=== PATIENT | male | born 1970 | race Caucasian/White ===

== ENCOUNTER → 2023-11-02 08:59 | Outpatient (REF) | payer BC, SELFPAY | LOC: RCS 08:59 | PROVIDERS: ATTENDING PHYSICIAN Internal Medicine Cardiovascular Disease; FAMILY PHYSICIAN Family Medicine | DX: I48.0 Paroxysmal atrial fibrillation (principal) | CPT/HCPCS: 93306; Q9950 ==

== ENCOUNTER 2025-01-16 07:10 | Day surgery (SDC) | payer BC, SELFPAY | END 2025-01-16 09:40 | disposition home or self-care (01) | LOC: CATH 07:10 | PROVIDERS: ATTENDING PHYSICIAN Internal Medicine Cardiovascular Disease; FAMILY PHYSICIAN Family Medicine; OTHER PHYSICIAN Internal Medicine Cardiovascular Disease | DX: I48.91 Unspecified atrial fibrillation (principal); I08.3 Combined rheumatic disorders of mitral, aortic and tricuspid valves; Q21.12 Patent foramen ovale; I10 Essential (primary) hypertension; E11.9 Type 2 diabetes mellitus without complications; G47.33 Obstructive sleep apnea (adult) (pediatric); Z72.0 Tobacco use; Z79.01 Long term (current) use of anticoagulants; Z79.4 Long term (current) use of insulin; Z79.85 Long-term (current) use of injectable non-insulin antidiabetic drugs | CPT/HCPCS: 93312; 93320; 93325; 92960 ==

== ENCOUNTER 2025-01-28 10:15 | Day surgery (SDC) | payer BC, SELFPAY ==
[2025-01-28] VITALS (15 sets, daily range): BP systolic 96–137; BP diastolic 67–120; BMI 48.0
--- NOTE | 2025-01-28 09:56 | ITS.CL.CATH ---
Die Hardener - Catheterization
Cardiac Catheterization
Procedure Report:
LEFT AND RIGHT HEART CATHETERIZATION
Date of Procedure: January 28, 2025
Referring:Baldemar Bay MD
PROCEDURES:
1. Left heart catheterization, coronary angiogram.
2. Moderate sedation.
3. Right heart catheterization
INDICATION: Concern for symptomatic severe aortic stenosis. Most recent echocardiogram suggestive of moderate to severe aortic stenosis.
ACCESS: Right radial artery, 6Fr. sheath, under US guidance.
HEMODYNAMICS : (mmHg)
RA (m) : 18
RV (s/d,m) : 33/15, 18
PA (s/d, m) : 34/24, 28
PCWP (m) : 28
PA saturation: 68.6% on 2L oxygen via NC
AO saturation: 94.3% on 2L oxygen via NC
Cardiac Output : 6.9 L/min by Reddy calculation
Cardiac Index : 2.38 L/min/m-2 by Reddy calculation
Systemic vascular resistance: 996 dsc^(-5)
Pulmonary vascular resistance: 0.29 alcazar unit
AO (s/d) : 126/93
LVEDP : 29
No significant gradient across the aortic valve to suggest aortic stenosis.
CORONARY FINDINGS
Dominance: Right
Left Main Trunk (LMT): Large caliber vessel that gives rise to the LAD and LCx branches and is free of angiographic disease.
Left Anterior Descending Artery (LAD): Large caliber vessel that gives off 2 major diagonal branches as it courses along the anterior inter-ventricular groove before wrapping around the cardiac apex. The LAD and its branches are free of
angiographic disease.
Left Circumflex Artery (LCx): Large caliber vessel that gives off 2 major obtuse marginal (OM) branches as it courses along the atrio-ventricular (AV) groove. The LCx and its branches are free of angiographic disease.
Right Coronary Artery (RCA): Large caliber dominant vessel that gives rise to the posterior descending artery (RPDA) and postero-lateral ventricular (RPLV) branches distally. The RCA and its branches are free of angiographic disease.
SEDATION: 47 minutes of procedural sedation was utilized. IV Midazolam and IV Fentanyl were administered. An independent medical practice assistant was present to assist with and help manage the patient's level of consciousness and physiologic status.
RADIATION SUMMARY: Fluoro Time (min): 4.9, Dose (mGy): 444.23, DAP (Gy.cm2) : 35.3
Closure Device: There were no immediate intra-procedural complications. The sheath was pulled in the labor law professor and a vascular-band applied to the right wrist for radial artery hemostasis using the patent hemostasis technique.
CONCLUSIONS
1. No obstructive CAD.
2. significantly elevated left and right-sided filling pressures with normal cardiac output.
RECOMMENDATIONS
1. Wean radial band per protocol. Monitor right hand perfusion and for bleeding from the radial site following removal of the vascular-band following trans-radial access.
2. Continue aggressive medical therapy and risk factor modification for secondary CAD prevention. Aggressive diuresis. Consider addition of SGLT-2i as outpatient.
3. Follow-up with Dr. Baldemar Bay
Copy to: Baldemar Bay MD (mentally impaired teacher)
Guerline Jackson MD, [facility], [facility]
[2025-01-28 10:59] LABS: Glucose - Point of Care 171 mg/dl (70-99)
[2025-01-28] MEDS: NSS 523 ML IV (11:01)
[2025-01-28] MEDS: ASPIRIN 325 MG PO (11:01)
[2025-01-28 11:07] LABS: Hematocrit 46.9 % (39.0-52.0); Hemoglobin 16.4 g/dL (13.0-18.0); Mean Corpuscular Hgb 30.6 pg (27.0-31.0); Mean Corpuscular Volume 87.5 fL (80.0-94.0); Mean Platelet Volume 11.1 fL (7.4-10.4); Platelet Count 213 10^3/uL (130-400); Red Blood Cell Count 5.36 10^6/uL (4.70-6.10); Red Cell Dist. Width 12.6 % (11.5-14.5); White Blood Cell Count 6.3 10^3/uL (4.8-10.8)
[2025-01-28 11:25] LABS: Blood Urea Nitrogen 14 mg/dl (9-20); Calcium 9.5 mg/dl (8.4-10.2); Carbon Dioxide 24 mmol/L (22-30); Chloride 111 mmol/L (98-107); Estimated Creatinine Clearance > 125 ml/min; Glucose 186 mg/dl (70-99); Potassium 4.5 mmol/L (3.5-5.1); Sodium 141 mmol/L (135-145); eGFR > 60.00
[2025-01-28 14:11] LABS: Glucose - Point of Care 145 mg/dl (70-99)
== END 2025-01-28 16:15 | disposition home or self-care (01) ==
LOC: CATH 10:15
PROVIDERS: ATTENDING PHYSICIAN Internal Medicine Interventional Cardiology; OTHER PHYSICIAN Internal Medicine Cardiovascular Disease
DX: I48.91 Unspecified atrial fibrillation (principal); Q21.12 Patent foramen ovale; I10 Essential (primary) hypertension; E11.9 Type 2 diabetes mellitus without complications; R93.1 Abnormal findings on diagnostic imaging of heart and coronary circulation; Z13.6 Encounter for screening for cardiovascular disorders
CPT/HCPCS: 99152; 99153; 80048; 82962; 85027; 93460; C1894; Q9967

== ENCOUNTER → 2025-02-21 07:35 | Outpatient (REF) | payer BC, SELFPAY ==
[2025-02-21 08:59] LABS: ALT (SGPT) 16 U/L (0-50); AST (SGOT) 15 U/L (17-59); Albumin 4.3 g/dl (3.5-5.0); Alkaline Phosphatase 73 U/L (38-126); Direct Bilirubin 0.2 mg/dl (0.0-0.4); Total Bilirubin 1.3 mg/dl (0.2-1.3); Total Protein 6.4 g/dl (6.3-8.2)
[2025-02-21 09:25] LABS: TSH 5.33 uIU/ml (0.47-4.68)
== END ==
LOC: RAD 07:35
PROVIDERS: ATTENDING PHYSICIAN Nurse Practitioner
DX: I48.91 Unspecified atrial fibrillation (principal)
CPT/HCPCS: 36415; 71046; 80076; 84443

== ENCOUNTER 2025-03-06 09:59 | Day surgery (SDC) | payer BC, SELFPAY ==
[2025-03-06 10:55] LABS: Glucose - Point of Care 224 mg/dl (70-99)
--- NOTE | 2025-03-06 11:46 | ITS.CL.CARDI ---
Handicapped Teacher - Cardioversion
Cardioversion
Procedure Report:
Cardioversion report
Date: March 06, 2025
History: Longstanding persistent atrial fibrillation by history status post prior PVI who is undergoing amiodarone loading prior to cardioversion
Procedure report:
After informed consent and patient safety timeout the patient was sedated by the anesthesiology service. Once adequate sedation a 300 J synchronized biphasic shock failed to restore sinus rhythm after 1 beat there was early return of atrial
fibrillation. A second 360 J synchronized biphasic shock also failed to restore durable sinus rhythm and the patient will continue his outpatient amiodarone load and remain in rate controlled atrial fibrillation. He already has an ablation date
scheduled for which he understands and he understands directions for both uninterrupted oral anticoagulation and amiodarone loading as described.
== END 2025-03-06 12:01 | disposition home or self-care (01) ==
LOC: CATH 09:59
PROVIDERS: ATTENDING PHYSICIAN Internal Medicine Cardiovascular Disease; FAMILY PHYSICIAN Family Medicine
DX: I48.11 Longstanding persistent atrial fibrillation (principal); I08.3 Combined rheumatic disorders of mitral, aortic and tricuspid valves; Q21.12 Patent foramen ovale; I10 Essential (primary) hypertension; E11.9 Type 2 diabetes mellitus without complications; G47.33 Obstructive sleep apnea (adult) (pediatric); E66.09 Other obesity due to excess calories; Z68.42 Body mass index [BMI] 45.0-49.9, adult; Z79.01 Long term (current) use of anticoagulants; Z79.4 Long term (current) use of insulin; Z79.85 Long-term (current) use of injectable non-insulin antidiabetic drugs
CPT/HCPCS: 82962; 92960; 93005

== ENCOUNTER 2025-04-11 11:13 | Emergency (ER) | payer BC, SELFPAY ==
[2025-04-11 11:21] VITALS: BP 151/110
[2025-04-11 11:29] LABS: Glucose - Point of Care 270 mg/dl (70-99)
[2025-04-11 11:42] VITALS: BP 143/102
[2025-04-11 12:00] VITALS: BP 137/89; BMI 49.1
[2025-04-11 12:16] LABS: Hematocrit 44.3 % (39.0-52.0); Hemoglobin 15.1 g/dL (13.0-18.0); Mean Corp Hgb Conc. 34.1 g/dL (33.0-37.0); Mean Corpuscular Volume 87.4 fL (80.0-94.0); Nucleated Red Blood Cells % 0 % (-); Platelet Count 214 10^3/uL (130-400); Red Cell Dist. Width 13.0 % (11.5-14.5)
--- NOTE | 2025-04-11 12:25 | ED.GENMED ---
History of Present Illness
<Rosey Schuster DO, Resident - Last Filed: 04/11/25 15:07>
General
Chief Complaint: Heart Rate Problem
Source: patient and significant other
Exam Limitations: none
Time Seen by Provider: 04/11/25 12:01
Nursing documentation reviewed up to this point in time: agreed with
History of Present Illness
History of Present Illness:
Patient is a 55-year-old male with a past medical history of A-fib s/p cardioversions on Eliquis, T2DM, hypertension who presents with elevated blood glucose levels. Patient takes his blood glucose levels at home and is normally between 105 and
230. Last night patient took his blood glucose and it was in the 300s. Patient also felt dizzy. Patient continued to take his blood glucose throughout the night I did state in the 300s. Patient called his calender wind up helper this morning and was
advised to take 60 units of Lantus and 25 units of Humalog. Blood glucose was still in the high 290s. Of note patient was diagnosed with A-fib earlier this year. Patient has been cardioverted 15 times. The last 2 times in February and March the
cardioversion attempts were unsuccessful and they were not able to get the patient back into a normal rhythm. Patient is scheduled for a cardiac ablation on and has been cleared via cardiac cath. Patient has been on Eliquis since
diagnosis. Patient was previously on Ozempic for a year and stopped it in January due to the A-fib. Patient had a cortisone shot in his left knee yesterday. Also of note patient has small 2 inch healing linear wound on left calf from an injury with a
saw at work that happened recently.
Past History
<Rosey Schuster DO, Resident - Last Filed: 04/11/25 15:07>
Past History
ED Past Medical History: Arrthythmia and IDDM
ED Past Surgical History: Cardiac (Cardiac ablation)
Social History
Tobacco: Non-smoker
Alcohol: Occasional
Drug: None
Personal: Single
Living: with family (Patient takes care of his father who he currently lives with)
Review of Systems
<Rosey Schuster DO, Resident - Last Filed: 04/11/25 15:07>
Review of Systems
Allergies reviewed?: Yes
All Other Systems: ROS reviewed and negative except as documented in HPI and ROS
Constitutional: Reports no symptoms
EENT: Reports no symptoms
Respiratory: Reports no symptoms
Cardiac: Reports no symptoms
: Reports no symptoms
Musculoskeletal: Reports no symptoms
Skin: Reports other (Left Calf healing linear 2 inch wound)
Neurological: Reports dizzy (Endorses dizziness last night. Had difficulty showering and bending over to get dressed feeling like he might fall over.)
Endocrine: Reports polyuria (Patient believes this is due to diuretic)
Hematologic/Lymphatic: Reports no symptoms
Psychiatric: Reports no symptoms
Phy Exam
<Rosey Schuster DO, Resident - Last Filed: 04/11/25 15:07>
General Physical Exam
General Presentation: well appearing and no apparent distress
General age: appears stated age
General Skin: warm and dry
General Habitus: obese
General Mental: alert
Cardiovascular Exam
Cardiovascular Exam: irregularly irregular
Heart Sounds: normal
Pulmonary Exam
Pulmonary Exam: lungs clear
Psychiatric Exam
Psychiatric Exam: normal mood/affect
Course
<Rosey Schuster DO, Resident - Last Filed: 04/11/25 15:07>
Orders/Labs/Results
Orders:
Orders
04/11/25 11:15
Electrocardiogram (*1) Urgent
Reason for Study: Atrial Fibrillation
EKG- Treatment ONCE
04/11/25 12:08
BNP [NT-proBNP] Urgent
Complete Blood Count/With Diff Urgent
Comprehensive Metabolic Panel Urgent
Troponin I Urgent
04/11/25 12:43
Bedside Glucose- Treatment ONCE
04/11/25 13:40
Cephalexin Monohydrate [Keflex] 500 mg PO NOW STA
Abnormal Lab Results
04/11/25 04/11/25 04/11/25
11:28 12:08 12:47
WBC 16.9 H 10^3/uL
(4.8-10.8)
Abs Immat Gran (auto) 0.1 H 10^3/uL
(0-0.05)
Absolute Neuts (auto) 15.7 H 10^3/uL
(1.4-6.5)
Absolute Lymphs (auto) 0.6 L 10^3/uL
(1.2-3.4)
Neutrophils % 93.1 H %
(42.2-75.2)
Lymphocytes % 3.4 L %
(20.5-51.1)
BUN 23 H mg/dl
(9-20)
Glucose 325 H mg/dl
(70-99)
AST 13 L U/L
(17-59)
POC Glucose 270 H mg/dl 279 H mg/dl
(70-99) (70-99)
04/11/25 12:08
04/11/25 12:08
Vital Signs
Initial and Last Documented VS:
Initial Vital Signs
Temp Pulse Resp BP Pulse Ox
98.4 F 86 18 151/110 97
04/11/25 11:21 04/11/25 11:21 04/11/25 11:21 04/11/25 11:21 04/11/25 11:21
Last Documented Vital Signs
Temp Pulse Resp BP Pulse Ox
98.4 F 85 23 121/74 95
04/11/25 11:21 04/11/25 13:45 04/11/25 13:45 04/11/25 13:00 04/11/25 13:45
<Tod Fowler, DO - Last Filed: 04/11/25 12:45>
Orders/Labs/Results
Orders:
Orders
04/11/25 11:15
Electrocardiogram (*1) Urgent
Reason for Study: Atrial Fibrillation
EKG- Treatment ONCE
04/11/25 12:08
BNP [NT-proBNP] Urgent
Complete Blood Count/With Diff Urgent
Comprehensive Metabolic Panel Urgent
Troponin I Urgent
04/11/25 12:43
Bedside Glucose- Treatment ONCE
04/11/25 13:40
Cephalexin Monohydrate [Keflex] 500 mg PO NOW STA
Abnormal Lab Results
04/11/25 04/11/25 04/11/25
11:28 12:08 12:47
WBC 16.9 H 10^3/uL
(4.8-10.8)
Abs Immat Gran (auto) 0.1 H 10^3/uL
(0-0.05)
Absolute Neuts (auto) 15.7 H 10^3/uL
(1.4-6.5)
Absolute Lymphs (auto) 0.6 L 10^3/uL
(1.2-3.4)
Neutrophils % 93.1 H %
(42.2-75.2)
Lymphocytes % 3.4 L %
(20.5-51.1)
BUN 23 H mg/dl
(9-20)
Glucose 325 H mg/dl
(70-99)
AST 13 L U/L
(17-59)
POC Glucose 270 H mg/dl 279 H mg/dl
(70-99) (70-99)
04/11/25 12:08
04/11/25 12:08
Vital Signs
Initial and Last Documented VS:
Initial Vital Signs
Temp Pulse Resp BP Pulse Ox
98.4 F 86 18 151/110 97
04/11/25 11:21 04/11/25 11:21 04/11/25 11:21 04/11/25 11:21 04/11/25 11:21
Last Documented Vital Signs
Temp Pulse Resp BP Pulse Ox
98.4 F 85 23 121/74 95
04/11/25 11:21 04/11/25 13:45 04/11/25 13:45 04/11/25 13:00 04/11/25 13:45
<Rosey Schuster DO, Resident - Last Filed: 04/11/25 15:07>
MDM/Problems Addressed
Differential Diagnosis Includes:
Type 2 diabetes mellitus uncontrolled, atrial fibrillation
MDM/Problems Addressed:
Two POC Accu-Cheks were completed, as well as glucose in the chemistry labs all values around 300 given patient's uncontrolled type 2 diabetes mellitus and elevated white blood count and recent soft tissue injury to lower left extremity we
prescribed Keflex 500 mg 3 times daily for 5 days. Patient will move forward with atrial fibrillation cardioablation as scheduled on . We tried to get in touch with patient's calender wind up helper with [facility], and left voicemail for
Jyothi to call us back. We were unable to get in touch.
<Rosey Schuster DO, Resident - Last Filed: 04/11/25 15:07>
*Pulse Oximetry
SaO2: 96
Oxygen Mode of Delivery: Room air
Patient hypoxic: no
*EKG
Interpreted by ED Provider?: Yes
EKG Intrepretation Date: 04/11/25
*Critical Care Note
Total Time (30-74mins, 75-104mins- exclusive of procedures): Not Applicable
ED Attending Note
<Rosey Schuster DO, Resident - Last Filed: 04/11/25 15:07>
-
Portions of this chart may have been created with voice recognition software.� Occasional wrong word or��sound alike� substitutions may have occurred due to the inherent limitations of voice recognition software.
<Tod Santiago Malcolm, DO - Last Filed: 04/11/25 12:45>
ED Attending Note
Patient seen and examined by attending physician: Yes
I performed a history and physical exam of patient and discussed management with resident, I reviewed resident's note and agree with documented findings and plan of care.: Yes
ED Attending Note:
I evaluated the patient at bedside. Leukocytosis is noted but no clear sign of infection at the left lower extremity. However will place on antibiotics. No evidence of DKA. Initial Accu-Chek 270 and on the chemistries it was 325. Of note the
patient did have a steroid injection to the left knee yesterday.
Discharge Plan
Departure
Patient Disposition: Home (Routine Discharge)
Date of Disposition: 04/11/25
Time of Disposition: 14:02
Patient with high blood pressure during this ER visit?: Yes
Discharge Problem:
Type 2 diabetes mellitus, A-fib, Hypertension
Instructions: Atrial Fibrillation (DC), Type 2 Diabetes (DC), BLOOD PRESSURE
Prescriptions:
New
cephalexin 500 mg capsule
500 mg PO TID Qty: 15 0RF
No Action
losartan 100 mg Tablet
100 mg PO DAILY
insulin lispro [Humalog KwikPen Insulin] 100 unit/mL Insulin Pen
16 unit SC TID
Rx Instructions:
16breakfast-16 lunch-20units at dinner
rosuvastatin 5 mg Tablet
5 mg PO DAILY
gabapentin 300 mg Tablet
300 mg PO DAILY
insulin glargine 100 unit/mL Cartridge
50 unit SC DAILY
Eliquis 5 mg Tablet
5 mg PO BID
metoprolol succinate [Toprol XL] 50 mg Tablet Extended Release 24 Hr
50 mg PO DAILY
furosemide [Lasix] 40 mg tablet
40 mg PO BID Qty: 60 5RF
amiodarone 200 mg Tablet
200 mg PO BID
Referrals:
Kusum Fischer DO [Family Provider]
Activity Restrictions/Additional Instructions:
Given your history of uncontrolled diabetes, an elevated white blood cell count today and recent skin wound we would like you to start Keflex 500 mg 3 times daily. We are giving you a prescription for 5 days. Please continue with your cardiac
ablation as scheduled on .
We are unable to get in touch with your calender wind up helper. Please schedule follow-up with him for insulin plan management.
Interventions
Interventions:
*Risk Screen - Suicide Last Done: 04/11/25 11:21
*General Assessment Last Done: 04/11/25 11:21
*Neglect/Abuse Screening Last Done: 04/11/25 11:21
*ED- Fall Risk Assessment Last Done: 04/11/25 12:00
*ED COVID-19 Vaccine History Last Done: 04/11/25 12:00
*Nursing Disposition Last Done: 04/11/25 14:16
ED- Cardiac Assessment Last Done: 04/11/25 12:00
ED- Neurological Assessment Last Done: 04/11/25 12:00
ED- Pulmonary Assessment Last Done: 04/11/25 12:00
Discharge Date and Time
Discharge Date/Time: 04/11/25 14:16
Print Language: MALAGASY
[2025-04-11 12:41] LABS: ALT (SGPT) 17 U/L (0-50); AST (SGOT) 13 U/L (17-59); Albumin 4.4 g/dl (3.5-5.0); Alkaline Phosphatase 81 U/L (38-126); Blood Urea Nitrogen 23 mg/dl (9-20); Calcium 9.7 mg/dl (8.4-10.2); Carbon Dioxide 24 mmol/L (22-30); Chloride 106 mmol/L (98-107); Estimated Creatinine Clearance > 125 ml/min; Glucose 325 mg/dl (70-99); Potassium 4.1 mmol/L (3.5-5.1); Sodium 138 mmol/L (135-145); Total Protein 6.6 g/dl (6.3-8.2); eGFR > 60.00
[2025-04-11 12:50] LABS: Glucose - Point of Care 279 mg/dl (70-99)
[2025-04-11 12:53] LABS: Troponin I < 0.012 ng/ml
[2025-04-11 13:00] VITALS: BP 121/74
[2025-04-11] MEDS: KEFLEX 500 MG PO (14:03)
== END 2025-04-11 14:16 | disposition home or self-care (01) ==
LOC: EMR 11:13
PROVIDERS: EMERGENCY PHYSICIAN Emergency Medicine; FAMILY PHYSICIAN Family Medicine
DX: E11.65 Type 2 diabetes mellitus with hyperglycemia (principal); I48.91 Unspecified atrial fibrillation; I10 Essential (primary) hypertension; D72.829 Elevated white blood cell count, unspecified; M79.89 Other specified soft tissue disorders; Z79.01 Long term (current) use of anticoagulants; Z79.4 Long term (current) use of insulin
CPT/HCPCS: 99284; 80053; 82962; 83880; 84484; 85025; 93005

== ENCOUNTER 2025-04-16 06:03 | Day surgery (SDC) | payer BC, SELFPAY ==
[2025-03-30 07:57] VITALS: BMI 48.3
[2025-03-30 08:29] LABS: Hematocrit 44.8 % (39.0-52.0); Hemoglobin 15.6 g/dL (13.0-18.0); Mean Corp Hgb Conc. 34.8 g/dL (33.0-37.0); Mean Corpuscular Volume 88.4 fL (80.0-94.0); Nucleated Red Blood Cells % 0 % (-); Platelet Count 208 10^3/uL (130-400); Red Cell Dist. Width 12.7 % (11.5-14.5)
[2025-03-30 08:39] LABS: INR 1.08; PT 14.3 Sec (11.4-14.6)
[2025-03-30 08:55] LABS: ALT (SGPT) 19 U/L (0-50); AST (SGOT) 15 U/L (17-59); Albumin 4.5 g/dl (3.5-5.0); Alkaline Phosphatase 70 U/L (38-126); Blood Urea Nitrogen 14 mg/dl (9-20); Calcium 9.4 mg/dl (8.4-10.2); Carbon Dioxide 29 mmol/L (22-30); Chloride 105 mmol/L (98-107); Estimated Creatinine Clearance > 125 ml/min; Glucose 180 mg/dl (70-99); Magnesium 2.2 mg/dl (1.6-2.3); Potassium 4.0 mmol/L (3.5-5.1); Sodium 140 mmol/L (135-145); Total Protein 6.8 g/dl (6.3-8.2); eGFR > 60.00
[2025-04-16] VITALS (11 sets, daily range): BP systolic 92–121; BP diastolic 64–96; BMI 48.1
[2025-04-16 06:44] LABS: Glucose - Point of Care 168 mg/dl (70-99)
[2025-04-16 08:47] LABS: ACT-LR - POC 300 Seconds (116-155)
[2025-04-16 09:10] LABS: ACT-LR - POC 305 Seconds (116-155)
--- NOTE | 2025-04-16 10:13 | ITS.CL.ABL ---
Process Control Tech - Ablation
Ablation
Procedure Report:
ELECTROPHYSIOLOGY ABLATION STUDY
DATE:: April 16, 2025�����������������������������REFERRING: Dr. Kwame Bay
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
HISTORY: See H and P.� Prior pulmonary vein isolation with a 28 mm cryoballoon in 2011
ANTIARRHYTHMIC DRUG: Amiodarone
PRE-PROCEDURE MALLORIE: No atrial thrombus
PRESENTING RHYTHM: Atrial fibrillation
'TIME-OUT':��called and confirmed.
SEDATION/ANESTHESIA:��provided via the anesthesia department using general anesthesia (LMA).
INTRAVENOUS/ARTERIAL ACCESS:
Right femoral venous - 10 Fr,
Left femoral venous - 8 Fr, 6 Fr
Left femoral arterial - 5 Fr
Ultrasound guidance for bilateral femoral vein access was utilized by me to obtain access with demonstration of normal anatomy
CHADS-VASC Score:
HAS-Bled Score
PROCEDURE:
1.��A decapolar CS catheter was placed within the CS for mapping and pacing.��This was also used as the reference catheter for the 3-D map.
2. The intracardiac ultrasound catheter was positioned in the RA to identify the FO for targeting of transseptal puncture, assist��in identification of the pulmonary vein ostia, monitoring pre and post ablation pulmonary vein flow velocities,
monitoring for 'bubble' formation during RF application as a sign of thermal injury,��and to monitor for pericardial effusion during mapping and ablation procedure.���Left atrial size, LV ejection fraction, and pulmonary vein flows were monitored
pre and post ablation procedure. The other valves were inspected and found to be free of significant regurgitation or stenosis.
3.��Half of the calculated heparin bolus was administered prior to the first transeptal puncture.��Transseptal puncture was performed to diagnose RA and LA pressure so that safetey of LA mapping and ablation could be further assessed, and to access
the left atrium and pulmonary veins for mapping and ablation.��This entailed advancing an 8 Fr SL-1 sheath with dilator into the superior vena cava and withdrawing both (monitoring intracardiac ultrasound, fluoroscopy and tip pressure) with the tip
oriented toward the atrial septum.��The fossa ovalis was engaged (indicated by sudden displacement of the sheath tip as well as tenting of the fossa seen on intracardiac ultrasound).��Left atrial access required a pass with the Brockenbrough needle
extended.��Left atrial catheter position was confirmed by pressure monitoring (RA mean pressure 8 mm Hg and LA mean presure 22 mm Hg), LA saturation (99%),��as well as fluoroscopy.��The sheath was advanced over the dilator and positioned in the left
atrium.��This procedure was repeated for the Agilis sheath.��The remainder of the calculated heparin bolus was administered and heparin was
infused to maintain ACT at 300 -350 seconds throughout the case.
4.��RA pacing was performed via the proximal decapolar poles and LA pacing was performed via the distal decapolr poles.
5. A quadrapolar catheter was first positioned at the His position for His Bundle recording which was tagged via the 3-D Navex sytem, and then passed to the RVA for RV pacing and recording.
6. The 9 mm lattice catheter was placed in each of the LIPV, LSPV, RSPV and the RIPV.��
7.��Next, a 3-D map was created using Navex.���A 3-D reconstructed CT image was compared to the 3-D Navex map to assist in anatomic interpretation, mapping and ablation.��The CT image and the NavX image were fused.
8. There was ingrowth into the shade of the left veins with the left inferior and left superior pulmonary veins isolated ostially anteriorly. The right pulmonary veins were isolated in a wide [place] fashion. Lesions were given to the left veins
at the shade and along the ligament of Naveen to reisolate the left veins and wide [place] fashion. Atrial fibrillation persisted. Posterior box lesion set was given with the roofline and floor line and posterior wall substrate and the atrial
fibrillation persisted. 1 360 J biphasic shock restored sinus rhythm and we demonstrated entrance and exit block in all 4 pulmonary veins as well as the roof posterior wall and floor of the left atrium. EP study post cardioversion did not
demonstrate any other nonpulmonary vein triggers for atrial fibrillation nor alternative mechanisms for SVT. Dual derek physiology was present in the AV node.
9. Normal sinus node and AV node function noted.
TOTAL FLOURO TIME: 10.7 minutes 343 mGy
TOTAL RF DURATION: 0 minutes
REVERSAL OF HEPARIN: 45 mg of protamine, slow IV administration
COMPLICATIONS:
None
Intracardiac US shows no pericardial effusion post ablation.
SUMMARY:��
Complex left atrial mapping and ablation.
Reisolation of the left pulmonary veins at the shade�posterior wall. Posterior wall box lesion set with roof and floor line as well as left atrial posterior wall substrate.
RECOMMENDATIONS:
1. Ambulate in 4 hours
2. Resume anticoagulation
3.��Amiodarone x 3 months
4.��Consider same-day discharge. I had a long discussion with patient and about significant weight loss as this appears to be a significant contributor to his left atrial dilation over the past 12 years and recurrence of atrial fibrillation
Copy to: Dr. Kwame Bay
[2025-04-16 10:25] LABS: Glucose - Point of Care 187 mg/dl (70-99)
[2025-04-16] MEDS: LASIX 20 MG IV (10:39)
[2025-04-16] MEDS: NOVOLOG vial 16 UNITS SC (11:19)
[2025-04-16] MEDS: LANTUS 0.6 UNITS SC (11:20)
--- NOTE | 2025-04-16 13:52 | W.PN.UPDATE ---
Update Note
Progress Note Update
55 yo WM s/p PVI (same day). He denies cp, sob, nate diet, voiding, amb w/o dizziness, EKG SR 1deg AVB, b/l groins c/d/i no HT, soft. He had elevated RA pressures and was treated with IV lasix 20mg, he will take him PO evening dose at home. He will
resume Eliquis tonight after 6pm and continue amiodarone 200mg daily for at least 3 mo. Activity restrictions reviewed. 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 He is for d/c home after 2p.
== END 2025-04-16 14:15 | disposition home or self-care (01) ==
LOC: CATH 06:03
PROVIDERS: ATTENDING PHYSICIAN Internal Medicine Cardiovascular Disease; FAMILY PHYSICIAN Family Medicine
DX: I48.0 Paroxysmal atrial fibrillation (principal); E11.9 Type 2 diabetes mellitus without complications; E66.01 Morbid (severe) obesity due to excess calories; Z68.42 Body mass index [BMI] 45.0-49.9, adult; G47.33 Obstructive sleep apnea (adult) (pediatric); E78.5 Hyperlipidemia, unspecified; I10 Essential (primary) hypertension; I25.10 Atherosclerotic heart disease of native coronary artery without angina pectoris; Q21.12 Patent foramen ovale; Z79.899 Other long term (current) drug therapy; Z79.4 Long term (current) use of insulin; Z79.01 Long term (current) use of anticoagulants; I42.8 Other cardiomyopathies; I47.10 Supraventricular tachycardia, unspecified; Z98.890 Other specified postprocedural states
CPT/HCPCS: C1894; C1730; C1733; C1766; C1892; C1759; 36415; 75572; 80053; 82962; 83735; 85025; 85347; 85610; 86850; 86900; 86901; 93005; 93656; 93657; Q9967

== ENCOUNTER → 2025-08-19 07:18 | Outpatient (REF) | payer BC, SELFPAY | LOC: RCS 07:18 | PROVIDERS: ATTENDING PHYSICIAN Nurse Practitioner; FAMILY PHYSICIAN Family Medicine | DX: I48.91 Unspecified atrial fibrillation (principal) | CPT/HCPCS: 93306; Q9950 ==